=== PATIENT | female | born 1955 | race Caucasian/White ===

== ENCOUNTER 2016-11-08 19:37 | Emergency (ER) | payer OTHER ==
[~2016-11-08] VITALS: Ht 152.4 cm; Wt 44.3 kg
[~2016-11-08 19:37] MED LIST: ADVIL200 MG PO; ALBUTEROL17 GM IH; IBUPROFEN800 MG PO; LYRICA100 MG PO; MOTRIN800 MG PO; NEURONTIN300 MG PO; PERCOCET 5/31 TABLET PO; TYLENOL EXTRA500 M1 PO; ULTRAM50 MG PO
[2016-11-08 20:49] LABS: HEMATOCRIT 37.8 % (36.0-46.0); MCH 31.1 PG (29.0-34.0); MCHC 34.9 G/DL (30.0-36.0); MCV 89.2 FL (83-99); MEAN PLAT.VOLUME 10.2 uM^3 (9.5-12.4); PLATELET COUNT 251 K/uL (156-360); RBC DIS.WIDTH-CV 12.7 % (11.8-14.6); RBC DIS.WIDTH-SD 41.9 % (39-53); RED BLOOD COUNT 4.24 M/uL (3.80-5.20); WHITE BLOOD COUNT 7.3 K/uL (4.1-10.2)
[2016-11-08 21:09] LABS: CHLORIDE 109 mEq/L (99-109); POTASSIUM 3.7 mEq/L (3.7-5.4); SODIUM 142 mEq/L (136-147)
[2016-11-08 21:11] LABS: GLUCOSE 92 mg/dL (70-99)
[2016-11-08 21:12] LABS: ANION GAP 9 MEQ/L (2-14)
[2016-11-08 21:13] LABS: TOTAL BILIRUBIN 0.1 mg/dL (0.0-1.0)
[2016-11-08 21:15] LABS: ALKALINE PHOSPHATASE 88 IU/L (3-129); GFR ESTIMATE (CALCULATED) > 59 mL/min/
[2016-11-08 21:16] LABS: UREA NITROGEN (BUN) 10 mg/dL (9-23)
[2016-11-08 21:21] LABS: TROP-I INTERPRETATION NEGATIVE; TROPONIN-I < 0.01 ng/mL (0.0-0.30)
[2016-11-08] MEDS ORDERED: LYRICA50 MG PO (22:00)
[2016-11-08] MEDS ORDERED: PROAIR HFA8.5 GM IH (22:01)
[2016-11-08] MEDS ORDERED: FLONASE16 G1 BOTH NARES (22:01)
[2016-11-08] MEDS ORDERED: NORCO 5/3251 TABLET PO (22:19)
[2016-11-08 22:31] VITALS: BP 119/63
== END 2016-11-08 22:32 | disposition home or self-care (01) ==
LOC: EME 19:37
PROVIDERS: Physician Assistant
DX: R07.89 Other chest pain (principal); N64.4 Mastodynia; F17.200 Nicotine dependence, unspecified, uncomplicated; J44.9 Chronic obstructive pulmonary disease, unspecified; M79.7 Fibromyalgia; K21.9 Gastro-esophageal reflux disease without esophagitis
CPT/HCPCS: 71020; 80053; 84484; 85027; 93005; 99281; 99283

== ENCOUNTER 2017-09-12 20:49 | Emergency (ER) | payer OTHER ==
[~2017-09-12] VITALS: Ht 152.4 cm; Wt 42.0 kg
[~2017-09-12 20:49] MED LIST changes: +FLONASE16 G1 BOTH NARES; +LYRICA50 MG PO; +NORCO 5/3251 TABLET PO; +PROAIR HFA8.5 GM IH
[2017-09-12] MEDS ORDERED: TORADOL10 MG PO (22:00)
[2017-09-12] MEDS ORDERED: VALIUM5 MG PO (22:00)
[2017-09-12] MEDS ORDERED: PREDNISONE20 MG PO (22:00)
[2017-09-12 23:36] VITALS: BP 117/75
== END 2017-09-13 00:02 | disposition home or self-care (01) ==
LOC: EME 20:49
DX: M25.551 Pain in right hip (principal); M25.552 Pain in left hip; M54.5 Low back pain; G89.29 Other chronic pain; J44.9 Chronic obstructive pulmonary disease, unspecified; F17.200 Nicotine dependence, unspecified, uncomplicated; Z88.8 Allergy status to other drugs, medicaments and biological substances
CPT/HCPCS: 99281; 99284; J1885

== ENCOUNTER 2017-12-26 13:01 | Emergency (ER) | payer OTHER ==
[~2017-12-26] VITALS: Ht 152.4 cm; Wt 41.1 kg
[~2017-12-26 13:01] MED LIST changes: +PREDNISONE20 MG PO; +TORADOL10 MG PO; +VALIUM5 MG PO
[2017-12-26] MEDS ORDERED: MEDROL DOSEPAK4 MG PO (15:46)
[2017-12-26] MEDS ORDERED: PERCOCET 5/31 TABLET PO (15:46)
[2017-12-26 16:00] VITALS: BP 108/57
== END 2017-12-26 16:00 | disposition home or self-care (01) ==
LOC: EME 13:01
DX: M54.40 Lumbago with sciatica, unspecified side (principal); G89.29 Other chronic pain; M51.26 Other intervertebral disc displacement, lumbar region; M48.061 Spinal stenosis, lumbar region without neurogenic claudication; J44.9 Chronic obstructive pulmonary disease, unspecified; M79.7 Fibromyalgia; K21.9 Gastro-esophageal reflux disease without esophagitis; F17.200 Nicotine dependence, unspecified, uncomplicated; Z88.8 Allergy status to other drugs, medicaments and biological substances
CPT/HCPCS: 72131; 99281; 99284; J1885; J7512